=== PATIENT | male | born 1940 | race Caucasian/White ===

== ENCOUNTER 2022-08-12 16:09 | Emergency (ER) | payer MEDICARE, SELFPAY ==
[2022-08-12 16:11] VITALS: BP 108/67; PULSE 85; RESP 16; TEMP 36.7; O2SAT 97; BMI 19.2
--- NOTE | 2022-08-12 18:11 | CT_ITS ---
INDICATION: Diarrhea nausea vomiting Crohn''s disease EXAMINATION: CT Abdomen And Pelvis W/ Contrast Injection TECHNIQUE: Helically acquired images were obtained of the abdomen and pelvis after IV contrast. A radiation dose optimization technique was used for this scan. IV Contrast dosage and agent: IV 100mL [id number] Oral contrast: None. COMPARISON: None. FINDINGS: Visualized lung bases: Bibasilar atelectasis. Liver: Unremarkable Gallbladder: Unremarkable Spleen: Enlarged. Pancreas: Unremarkable Adrenal Glands: Unremarkable Kidneys: Bilateral parapelvic cysts Vasculature: Severe aortoiliac atherosclerotic disease. GI Tract: Multiple loops of large and small bowel demonstrates circumferential wall thickening with increased enhancement and surrounding mesenteric fat stranding. Lymphadenopathy: None Peritoneum: No ascites. Bladder: Unremarkable Reproductive organs: prostatic radiation beads. Bones/Soft tissues: There are diffuse degenerative changes of the spine. CT/Abdomen/Pelvis W IV Cont ONLY IMPRESSION: Findings suspicious for acute flare of Crohn''s disease. No focal fluid collection or free air. Splenomegaly. Electronically Signed: Dylan Sánchez MD at 19:12 EST ,
--- NOTE | 2022-08-12 18:14 | EX.ED.DYSGE1 ---
HPI History of Present Illness Chief Complaint: Nausea/Vomiting/Diarrhea Informant: patient Narrative Narrative: Patient presents with nausea vomiting and diarrhea. This patient has a long history of Crohn's. He is not on any biologic or immune modulators or steroids now. 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 He had chemotherapy 1 year ago but stopped due to his mental significant side effects. 30 hours ago he started with some watery diarrhea. He also had vomiting. He actually took Zofran this morning. He vomited a single time at 4 PM. The vomiting is gotten better and the nausea is better. He is not really having abdominal pain but he has a lot of borborygmi. No blood in the stool or vomitus. The stool is almost pure water. He has had multiple episodes. No fevers or chills. No cough. No muscle aches. This patient does have a history of Crohn's but no change in medicines. His also had recent viral type illness that included nausea vomiting and diarrhea just within the past week. Patient does chronically take colestipol as well as 2-4 Imodium a day normally. [facility] Medical History (Updated 08/12/22 @ 23:[address] Hector Grayson MD) Crohn's disease HTN (hypertension) Prostate cancer Home Medications ondansetron 4 mg disintegrating tablet 4 mg PO Q8H PRN nausea and vomiting #10 tabs 08/12/22 [Rx Last Taken Unknown] prednisone 20 mg tablet 40 mg PO DAILY #10 tabs 08/12/22 [Rx Last Taken Unknown] promethazine 25 mg tablet 25 mg PO TID PRN nausea and vomiting #14 tabs 08/12/22 [Rx Last Taken Unknown] Allergy/AdvReac Type Severity Reaction Status Date / Time oseltamivir [From Tamiflu] Allergy Hives Verified 08/12/22 16:11 Penicillins [PCN] Allergy Hives Verified 08/12/22 16:11 Surgical History (Updated 08/12/22 @ 19:23 by Kevin Peralta) Hx of cholecystectomy Social History Smoking Status: Never smoker ROS ROS ED Constitutional Constitutional ED: Denies chills, fever(s) or subjective ENT ENT ED: Denies rhinorrhea or sore throat Cardiovascular Cardiovascular: Denies chest pain or palpitations Respiratory/Chest Respiratory/Chest: Denies cough or dyspnea Gastrointestinal Gastrointestinal: Reports diarrhea, nausea and vomiting; Denies abdominal pain, constipation or melena Genitourinary Genitourinary ED: Denies dysuria Musculoskeletal Musculoskeletal: Denies arthralgias or myalgias Integumentary Denies rash Neurologic Neurologic: Denies headache(s) Endocrine Endocrinology: Denies polydipsia or polyuria Hematologic/Lymphatic Hematologic/Lymphatic: Denies easy bleeding or easy bruising Allergic/Immunologic Allergic/Immunologic ED: Denies urticaria EXAM Physical Exam Const Vital Signs: 08/12/22 16:11 08/12/22 19:20 Temperature 98.0 F Temperature Source Temporal Pulse Rate 85 69 Respiratory Rate 16 16 Blood Pressure 108/67 110/70 Blood Pressure Mean 80 83 Pulse Ox 97 93 Oxygen Delivery Method Room Air Positive well nourished and well developed General Appearance ED: well developed and NAD HEENT Reports dry mucous membranes HEENT Narrative: Mildly dry. Mouth ED: Yes dry mucous membranes Mouth: dry mucous membranes Eyes General Eye ED: Negative for scleral icterus Neck no lymphadenopathy and no JVD Resp normal respiratory effort and clear to auscultation bilaterally Auscultation: Negative for rhonchi or wheezes Cardio regular rate and regular rhythm GI normal to inspection, nondistended, normoactive bowel sounds GI Narrative: Abdomen is thin flat. Bowel sounds are slightly increased. There is no distention. There really is no tenderness on exam either. No suprapubic tenderness. No CVA tenderness Back/Spine no CVA tenderness Extremity normal to inspection General Extremety ED: Negative for edema or tenderness General Extremity: Negative for edema Neuro Sensorium / Orientation: alert Psych mental status grossly normal Skin no rashes or lesions noted MDM MDM MDM Narrative Medical decision making narrative: CT scanning consistent with Crohn's. CBC showed low white count but normal hemoglobin. Platelets were minimally low. Electrolytes overall were normal. There was some signs of dehydration with high BUN and creatinine but I do not know what his baseline is. Creatinine was only mildly elevated 1.6. Liver function test showed minimal nonspecific elevation alk phos at 120. Lipase was normal. I find that the patient has been on chronic colestipol and 2-4 Imodium a day for years. He used to take in excess of 8 or 10 Imodium per day. He has not taken any of this for a day or 2 because he was afraid it might make him nauseated. But he only vomited a single time today. He had 12 or more hours of relief from his nausea with Zofran. He is gotten IV fluids here. Lactate was minimally elevated. I discussed options with them. They would prefer to try to go home. I will give him a dose of steroids through the IV here. I will write for some oral steroids. But he would like to try starting his colestipol and Imodium again. I will write for meds for nausea. We discussed reasons to return. He will contact his isolation washer. Lab Data Attestation: I reviewed the patient's lab results. Labs: Laboratory Results - last 24 hr 08/12/22 08/12/22 08/12/22 18:00 18:00 19:15 WBC 4.3 L RBC 5.02 Hgb 14.5 Hct 45.2 MCV 90.0 MCH 28.9 MCHC 32.1 RDW Std Deviation 54.0 H RDW Coeff of Roxy 16.2 H Plt Count 120 L MPV 9.9 Immature Gran % (Auto) 0.500 Neut % (Auto) 74.6 H Lymph % (Auto) 6.6 L Cottle % (Auto) 17.6 H Eos % (Auto) 0.2 Baso % (Auto) 0.5 Absolute Neuts (auto) 3.2 Absolute Lymphs (auto) 0.28 L Nucleated RBC % 0 Differential Comment SCANNED Diff Path Review December foll Sodium 143 Potassium 3.9 Chloride 111 H Carbon Dioxide 25.0 Anion Gap 7 BUN 39 H Creatinine 1.60 H Estim Creat Clear Calc 30.71 Est GFR (MDRD) Af Amer 54 L Est GFR (MDRD) Non-Af 44 L BUN/Creatinine Ratio 24.4 H Glucose 141 H Lactic Acid Calcium 9.2 Total Bilirubin 0.60 Direct Bilirubin 0.29 AST 19 ALT 41 Alkaline Phosphatase 124 H Total Protein 6.4 Albumin 3.0 L Globulin 3.4 Lipase 36 L Urine Color Urine Clarity Urine pH Ur Specific [place] Urine Protein Urine Glucose (UA) Urine Ketones Urine Occult Blood Urine Nitrite Urine Bilirubin Urine Urobilinogen Ur Leukocyte Esterase Urine RBC Urine WBC Ur Squamous Epith Cells Urine Bacteria Urine Mucus 08/12/22 08/12/22 19:15 19:45 WBC RBC Hgb Hct MCV MCH MCHC RDW Std Deviation RDW Coeff of Roxy Plt Count MPV Immature Gran % (Auto) Neut % (Auto) Lymph % (Auto) Cottle % (Auto) Eos % (Auto) Baso % (Auto) Absolute Neuts (auto) Absolute Lymphs (auto) Nucleated RBC % Differential Comment Diff Path Review Sodium Potassium Chloride Carbon Dioxide Anion Gap BUN Creatinine Estim Creat Clear Calc Est GFR (MDRD) Af Amer Est GFR (MDRD) Non-Af BUN/Creatinine Ratio Glucose Lactic Acid 2.4 H* Calcium Total Bilirubin Direct Bilirubin AST ALT Alkaline Phosphatase Total Protein Albumin Globulin Lipase Urine Color Yellow Urine Clarity Clear Urine pH 5.0 Ur Specific [place] 1.015 Urine Protein 100 H Urine Glucose (UA) Normal Urine Ketones Negative Urine Occult Blood Negative Urine Nitrite Negative Urine Bilirubin 1 H Urine Urobilinogen Normal Ur Leukocyte Esterase 25 H Urine RBC 0 SEEN Urine WBC 0-5 SEEN Ur Squamous Epith Cells 0 SEEN Urine Bacteria 0 SEEN Urine Mucus 0 SEEN Radiography Diagnostic Testing: Clinical Impression(s) from Imaging Studies Abdomen/Pelvis CT 08/12/22 18:11 IMPRESSION: Findings suspicious for acute flare of Crohn''s disease. No focal fluid collection or free air. Splenomegaly. Electronically Signed: Dylan Sánchez MD at 19:12 EST , CT shows findings that are suspicious for Crohn's disease. No fluid collection free air or obstruction. Discharge Plan Triage Chief Complaint: Nausea/Vomiting/Diarrhea ED Provider: Hector Grayson Dx/Rx/DC Orders Clinical Impression: Crohn disease, Diarrhea Prescriptions: New prednisone 20 mg tablet 40 mg PO DAILY Qty: 10 0RF ondansetron 4 mg tablet,disintegrating 4 mg PO Q8H PRN (Reason: nausea and vomiting) Qty: 10 0RF promethazine 25 mg tablet 25 mg PO TID PRN (Reason: nausea and vomiting) Qty: 14 0RF Primary Care Provider: Janice Farah Referrals: Cristina Cutler DO [Med Staff - Type Casting Machine Operator] - As Needed Activity Restrictions/Additional Instructions: Your isolation washer, Dr. Murillo as soon as possible for further treatment. Disposition Disposition: Home, Self Care Discharge Date/Time: 08/12/22 23:50
[2022-08-12 18:20] LABS: Absolute Lymphocyte Count 0.28 X10^3/uL (0.83-4.51); Absolute Neutrophil Count 3.2 X10^3/uL (2.0-7.7); Basophil# 0.02 X10^3/uL; Basophil% 0.5 % (0-1); Eosinophil# 0.01 X10^3/uL; Eosinophils% 0.2 % (0-5); Hematocrit 45.2 % (40-54); Hemoglobin 14.5 g/dL (13.0-16.5); Lymphocyte # 0.28 X10^3/ul (0.83-4.51); Lymphocyte % 6.6 % (19-41); Mean Corp Hgb Conc 32.1 g/dL (32-36); Mean Corpuscular Hgb 28.9 pg (27.0-32.0); Mean Platelet Vol. 9.9 fl (6.2-12.0); Monocyte# 0.75 X10^3/uL; Monocyte% 17.6 % (0-10); NRBC Flagged by Analyzer 0 % (0-5); Neutrophil # 3.19 X10^3/uL (2.7-7.7); Neutrophil % 74.6 % (47-70); POSITIVE DIFFERENTIAL YES; Platelet Count 120 K/mm3 (150-450); RBC Distribution Width CV 16.2 % (11.6-14.6); Red Blood Count 5.02 M/mm3 (4.6-6.2); White Blood Count 4.3 K/mm3 (4.4-11.0)
[2022-08-12 18:21] LABS: Differential Indicated SCAN CRITERIA MET
[2022-08-12] MEDS: 0.9% Normal Saline 1,000 ML 1000 ML IV (18:28)
[2022-08-12] MEDS: Ondansetron 4 MG/2 ML Vial IV (18:29)
[2022-08-12 18:34] LABS: Anion Gap 7 (5-15); BUN 39 mg/dL (7-18); BUN/Creat Ratio 24.4 RATIO (10-20); Calcium,Total 9.2 mg/dL (8.5-10.1); Chloride 111 mmol/L (98-107); EST Glomerular Filtration Rate 44 mL/min (>60); Est Glom Filt Rate - Afr Amer 54 mL/min (>60); Estimated Creatinine Clearance 30.71 ml/min; Glucose 141 mg/dL (74-106); Potassium 3.9 mmol/L (3.5-5.1); Sodium Level 143 mmol/L (136-145)
[2022-08-12 18:42] LABS: Differential Comment SCANNED
[2022-08-12 19:20] VITALS: BP 110/70; PULSE 69; RESP 16; O2SAT 93
[2022-08-12 19:47] LABS: AST(SGOT) 19 U/L (15-37); Alanine Aminotransfer ALT/SGPT 41 U/L (16-61); Alkaline Phosphatase 124 U/L (45-117); Bilirubin, Direct 0.29 mg/dL (0.00-0.30); Globulin 3.4 g/dL (2.2-4.2); Lipase 36 U/L (73-393); Protein, Total 6.4 g/dL (6.4-8.2)
[2022-08-12 19:54] LABS: Bacteria 0 SEEN /hpf (None Seen); Mucous, Urine 0 SEEN /hpf (<or=2+); Red Blood Cells-Urine 0 SEEN /hpf (0-5); Squamous Epithelial Cells - UA 0 SEEN /hpf (0-5)
[2022-08-12 19:56] LABS: Color, Urine Yellow (Yellow); Glucose, Dipstick Normal (Normal); Ketone-Dipstick Negative (Negative); Leukocyte Esterase-Dipstick 25 /ul (Negative); Nitrite-Dipstick Negative (Negative); Occult Blood-Urine Negative /ul (Negative); Protein-Dipstick 100 mg/dl (Negative); Specific Gravity, Urine 1.015 (1.002-1.030); Urine Clarity Clear (Clear); Urine Urobilinogen Normal (Normal)
[2022-08-12 20:02] LABS: Lactic Acid 2.4 mmol/L (0.4-1.9)
[2022-08-12 20:08] LABS: Urine Bilirubin Dipstick 1 mg/dL (Negative); White Blood Cells 0-5 SEEN /hpf (0-5)
[2022-08-12 23:27] LABS: Reflex Lactate? Y
[2022-08-12] MEDS: MethylPREDNISolone 125 MG/2 ML Vial 60 MG IV (23:41)
[2022-08-16 15:21] LABS: Pathologist Review Reviewed
== END 2022-08-12 23:50 | disposition home or self-care (01) ==
PROVIDERS: Emergency Provider Emergency Medicine; PCP Internal Medicine; Visit Provider Emergency Medicine
DX: R19.7 Diarrhea, unspecified (principal); C17.9 Malignant neoplasm of small intestine, unspecified; K50.90 Crohn's disease, unspecified, without complications; R11.2 Nausea with vomiting, unspecified; E86.0 Dehydration; I10 Essential (primary) hypertension; Z79.52 Long term (current) use of systemic steroids
CPT/HCPCS: 74177; 80048; 80076; 81001; 83605; 83690; 85025; 87804; 96361; 96374; 96375; 99283; J7030; Q9967; A4216; J2405